=== PATIENT | male | born 1970 | race Asian ===

== ENCOUNTER 2023-03-21 02:53 | Emergency (ER) | payer MEDICAID ==
[~2023-03-21] VITALS: Ht 182.9 cm; Wt 91.0 kg
[2023-03-21 03:00] VITALS: TEMP 98.2; O2SAT 100
[2023-03-21] MEDS ORDERED: ASPIRIN 81MG TABLET PO ONE (03:15)
[2023-03-21 03:29] LABS: BASOPHILS % 0.5 % (0.0-2.0); EOSINOPHILS % 1.7 % (0.0-5.0); HEMATOCRIT. 46.1 % (42.0-52.0); HEMOGLOBIN. 15.1 g/dL (14.0-18.0); MEAN CORPUSCULAR HEMOGLOBIN 26.7 pg (28.0-32.0); MEAN CORPUSCULAR HGB CONC 32.8 g/dL (31.0-37.0); MEAN CORPUSCULAR VOLUME 81.4 fL (80.0-94.0); MEAN PLATELET VOLUME 7.4 fl (7.4-10.4); MONOCYTES % 6.4 % (2.0-8.0); NEUTROPHILS % 68.4 % (40.0-76.0); PLATELET 264 x1000/uL (130-400); RED BLOOD CELL COUNT 5.67 mill/uL (4.7-6.1); WHITE BLOOD COUNT 9.4 x1000/uL (4.5-11.0)
[2023-03-21 03:36] LABS: CHLORIDE 105 mEq/L (98-107); INDEX HEMOLYSI 1 (1-3); INDEX ICTERIC 1 (1-4); INDEX LIPEMIC 1 (1-3); SODIUM 140 mEq/L (136-145)
[2023-03-21 03:44] LABS: ALANINE AMINOTRANSFERASE 61 IU/L (13-61); ALBUMIN 3.9 g/dL (3.4-5.0); ASPARTATE AMINOTRANSFERASE 27 IU/L (15-37); BILIRUBIN TOTAL 0.4 mg/dL (0.1-1.0); CARBON DIOXIDE 30 mEq/L (21-32); GLUCOSE 169 mg/dL (70-105); NT PRO B-TYPE NATRIURETIC PEP 103 pg/mL (5-125); PROTEIN TOTAL 7.8 g/dL (6.0-8.3); TROPONIN I HIGH SENSITIVITY 10 ng/L (<78); UREA NITROGEN BLOOD 14 mg/dL (7-21)
[2023-03-21 05:57] LABS: TROPONIN I HIGH SENSITIVITY 8 ng/L (<78)
[2023-03-21 08:00] VITALS: BP 145/87; PULSE 81; RESP 18
[2023-03-21] MEDS ORDERED: IBUP-2029 MT (08:46)
== END 2023-03-21 09:00 | disposition home or self-care (01) ==
LOC: ER 03:33
DX: R53.1 Weakness (principal); I10 Essential (primary) hypertension; K02.9 Dental caries, unspecified
CPT/HCPCS: 80053; 83880; 85025; 84484; 36415; 71045; 93005; 99285; Z7610

== ENCOUNTER 2023-04-11 00:22 | Emergency (ER) | payer MEDICAID ==
[~2023-04-11] VITALS: Ht 180.3 cm; Wt 91.2 kg
[~2023-04-11 00:22] MED LIST: IBUP-2029 MT
[2023-04-11 00:36] VITALS: TEMP 97.7; O2SAT 99
[2023-04-11] MEDS ORDERED: NAPR-1176 MT (01:27)
[2023-04-11] MEDS ORDERED: KETOROLAC 15MG/ML VIAL IM ONE (01:30)
[2023-04-11 01:43] VITALS: BP 135/83; PULSE 81; RESP 16
== END 2023-04-11 01:46 | disposition home or self-care (01) ==
LOC: ER 00:22
DX: K08.89 Other specified disorders of teeth and supporting structures (principal); I10 Essential (primary) hypertension
CPT/HCPCS: 96372; 99283; J1885; Z7610 ×2